=== PATIENT | male | born 1960 | race Asian ===

== ENCOUNTER 2018-02-07 16:22 | Emergency (ER) | payer MEDICAID ==
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
--- NOTE | 2018-02-07 17:39 | RADIOLOGY REPORT (SQ) ---
EXAM DESCRIPTION: FINGER LEFT COMPLETED DATE/TIME: 02/07/2018 5:26 pm REASON FOR STUDY: left middle finger infection COMPARISON: None. NUMBER OF VIEWS: Three views. TECHNIQUE: AP, lateral, and oblique images acquired of the left third finger. LIMITATIONS: None. FINDINGS: MINERALIZATION: Normal. BONES: No acute fracture or dislocation. No worrisome bone lesions. SOFT TISSUES: Diffuse swelling. No foreign body. OTHER: No other significant finding. IMPRESSION: Cellulitis. No evidence of osteomyelitis. COMMENT: SITE OF TRAUMA/COMPLAINT MARKED/STAMP COMPLETED: YES. TECHNICAL DOCUMENTATION: JOB ID: [id number] [email or web address]- All Rights Reserved Reading location - IP/workstation name: [email or web address]
--- NOTE | 2018-02-07 17:42 | RADIOLOGY REPORT (SQ) ---
EXAM DESCRIPTION: HIP RIGHT AP/LATERAL COMPLETED DATE/TIME: 02/07/2018 5:26 pm REASON FOR STUDY: right hip pain COMPARISON: None. NUMBER OF VIEWS: Two views. TECHNIQUE: AP pelvis and additional frog-leg view of the right hip. LIMITATIONS: None. FINDINGS: MINERALIZATION: Normal. RIGHT HIP: No fracture or dislocation. No worrisome bone lesions. LEFT HIP: Intact. 5 mm lytic lesion with sclerotic margin subcapital femoral neck of unlikely clinic al significance. Correlate clinically. PUBIS AND ISCHIUM: No fracture. PELVIS: No fracture. SACRUM: No fracture or dislocation. No worrisome bone lesions. LOWER LUMBAR SPINE: Spondylosis. SOFT TISSUES: No findings. OTHER: No other significant finding. IMPRESSION: No acute findings. TECHNICAL DOCUMENTATION: JOB ID: [id number] [employer]- All Rights Reserved Reading location - IP/workstation name: [email or web address]
[2018-02-07 17:50] LABS: ABSOLUTE BASOPHILS # (AUTO) 0.1 10^3/uL (0.0-0.2); ABSOLUTE EOSINOPHILS # (AUTO) 0.8 10^3/uL (0.0-0.6); ABSOLUTE LYMPHOCYTES (AUTO) 1.8 10^3/uL (0.5-4.7); ABSOLUTE MONOCYTES (AUTO) 0.9 10^3/uL (0.1-1.4); ABSOLUTE NEUT (AUTO) 2.9 10^3/uL (1.7-8.2); BASOPHILS % (AUTO) 1.1 % (0-2); EOSINOPHILS % (AUTO) 11.8 % (0-6); HEMOGLOBIN 13.4 g/dL (13.5-17.0); LYMPHOCYTES % (AUTO) 28.3 % (13-45); MEAN CORPUSCULAR HEMOGLOBIN 29.6 pg (27.0-33.4); MEAN CORPUSCULAR HGB CONC 34.4 g/dL (32.0-36.0); MEAN CORPUSCULAR VOLUME 86 fl (80-97); MONOCYTES % (AUTO) 13.4 % (3-13); PLATELET COUNT 175 10^3/uL (150-450); RED BLOOD COUNT 4.53 10^6/uL (4.35-5.55); RED CELL DISTRIBUTION WIDTH 13.7 % (11.5-14.0); SEGMENTED NEUTROPHILS % (AUTO) 45.4 % (42-78); TOTAL CELLS COUNTED % (AUTO) 100 %; WHITE BLOOD COUNT 6.4 10^3/uL (4.0-10.5)
[2018-02-07 18:04] LABS: ALANINE AMINOTRANSFERASE 79 U/L (21-72); ALBUMIN 3.6 g/dL (3.5-5.0); ALKALINE PHOSPHATASE 54 U/L (38-126); ANION GAP 9 (5-19); ASPARTATE AMINO TRANSFERASE 52 U/L (17-59); BILIRUBIN,DIRECT 0.6 mg/dL (0.0-0.4); BILIRUBIN,TOTAL 0.7 mg/dL (0.2-1.3); BLOOD UREA NITROGEN 20 mg/dL (7-20); CARBON DIOXIDE 27 mmol/L (22-30); CHLORIDE 103 mmol/L (98-107); GLUCOSE 99 mg/dL (75-110); SODIUM 138.5 mmol/L (137-145); TOTAL PROTEIN 7.2 g/dL (6.3-8.2)
[2018-02-07] MEDS ORDERED: KETOROLAC TROMETHAMINE INJ/PF 30 MG/1 ML SDV IV ONE (18:17)
[2018-02-07] MEDS ORDERED: CEFTRIAXONE INJ 1000 MG VIAL IV ONE (18:17)
[2018-02-07] MEDS ORDERED: DOXYCYCLINE HYCLATE 100 MG TABLET PO ONE (18:17)
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
[2018-02-07 18:57] VITALS: BP 178/89
== END 2018-02-07 18:55 | disposition home or self-care (01) ==
LOC: ER 16:22
DX: M25.551 Pain in right hip (principal); L08.9 Local infection of the skin and subcutaneous tissue, unspecified
CPT/HCPCS: 99284; 96372; 96374; 36415; 85025; 80053; 83605; 73140; 73502; J1885; J0696

== ENCOUNTER 2018-10-14 16:20 | Emergency (ER) | payer MEDICAID ==
[2018-10-14] MEDS ORDERED: DIPHENHYDRAMINE HCL 50 MG CAPSULE PO ONE (17:00)
--- NOTE | 2018-10-14 17:04 | ER Document Report ---
HPI - HPI Patient complains to provider of: bee sting Time Seen by Provider: 10/14/18 17:00 Pain Level: 4 Context: Patient is a 58-year-old male presents to the emergency department chief complaint of a bee sting. Patient states he feels as though he may have gotten stung by a bee last evening on the right side of his back. Patient states last evening he had some tightness in his throat and overall itching. States he did take Benadryl and overall felt better. Patient presents to the emergency room today for again generalized itching in the right back. Patient's denying any respiratory distress at this time, he is also denying any tightness in his chest, chest pain, shortness of breath, vomiting, diarrhea. Patient also requesting "all the shots I need because I am going out of the country." Past Medical History - General Information source: Patient - Social History Smoking Status: Unknown if Ever Smoked Family History: Reviewed & Not Pertinent Renal/ Medical History: Denies: Hx Peritoneal Dialysis - Immunizations Hx Diphtheria, Pertussis, Tetanus Vaccination: No Vertical Provider Document - CONSTITUTIONAL Agree With Documented VS: Yes Notes: GENERAL: Alert, interacts well. No acute distress. HEAD: Normocephalic, atraumatic. EYES: Pupils equal, round, and reactive to light. Extraocular movements intact. ENT: Oral mucosa moist, tongue midline. NECK: Full range of motion. Supple. Trachea midline. LUNGS: Clear to auscultation bilaterally, no wheezes, rales, or rhonchi. No respiratory distress. HEART: Regular rate and rhythm. No murmur ABDOMEN: Soft, non-tender. Non-distended. Bowel sounds present in all 4 quadrants. EXTREMITIES: Moves all 4 extremities spontaneously. No edema, normal radial and dorsalis pedis pulses bilaterally. No cyanosis. BACK: no cervical, thoracic, lumbar midline tenderness. No saddle anesthesia, normal distal neurovascular exam. NEUROLOGICAL: Alert and oriented x3. Normal speech. cranial nerves II through XII grossly intact PSYCH: Normal affect, normal mood. SKIN: Warm, dry, normal turgor. 6cm x 6cm Area of urticaria noted right back. No other skin lesions noted. - INFECTION CONTROL TRAVEL OUTSIDE OF THE [place] IN LAST 30 DAYS: No Course - Re-evaluation Re-evalutation: I have discussed with patient he needs to follow-up with his primary care provider for immunizations of that she may need when he is leaving the country. I discussed use of Benadryl for generalized urticaria rash. Patient shows no signs of anaphylaxis. He has no respiratory distress, lungs are clear and equal in all [place]. He is denying any vomiting or diarrhea episodes. I feel as though this is a localized area of urticaria. Patient stable for discharge. Discharge - Discharge Clinical Impression: Itching, Urticaria Insect bite Qualifiers: Encounter type: initial encounter Site of insect bite: lower back Qualified Code(s): S30.860A - Insect bite (nonvenomous) of lower back and pelvis, initial encounter Condition: Stable Disposition: HOME, SELF-CARE Instructions: Insect Sting ([facility]), Itching, Nonspecific ([facility]), Acute Urticaria ([facility]) Additional Instructions: As we discussed take benadryl as prescribed. Also return to the emergency room should you develop any shortness of breath of breath or tightness in your throat. Prescriptions: Diphenhydramine HCl [Benadryl] 50 mg PO Q6 #30 capsule
[2018-10-14 17:33] VITALS: BP 131/76
== END 2018-10-14 17:34 | disposition home or self-care (01) ==
LOC: ER 16:20
DX: L29.9 Pruritus, unspecified (principal); L50.9 Urticaria, unspecified; S30.860A Insect bite (nonvenomous) of lower back and pelvis, initial encounter; W57.XXXA Bitten or stung by nonvenomous insect and other nonvenomous arthropods, initial encounter
CPT/HCPCS: 99282; J3490

== ENCOUNTER → 2019-03-05 | Outpatient (CLI) | payer MEDICAID ==
--- NOTE | 2019-03-05 12:51 | RADIOLOGY REPORT (SQ) ---
EXAM DESCRIPTION: RIBS RIGHT W/PA CHEST COMPLETED DATE/TIME: 03/05/2019 10:16 am REASON FOR STUDY: R SIDED RIB PAIN R07.89 OTHER CHEST PAIN COMPARISON: None. TECHNIQUE: Frontal view of the chest and additional views of the right ribs acquired. NUMBER OF VIEWS: Three view. LIMITATIONS: None. FINDINGS: FRONTAL CXR: No pneumothorax. No pleural effusion. No atelectasis or infiltrates. RIBS: 4th and 5th healed right anterior ribs. Probably also the 6th. No acute rib fracture or bone lesion. OTHER: No other significant finding. IMPRESSION: No acute rib fracture or pneumothorax. Clear lungs. COMMENT: SITE OF TRAUMA/COMPLAINT MARKED/STAMP COMPLETED: NO. TECHNICAL DOCUMENTATION: JOB ID: [id number] [employer]- All Rights Reserved Reading location - IP/workstation name: [email or web address]
== END ==
LOC: RAD 10:00
PROVIDERS: ATTEND Nurse Practitioner Primary Care
DX: R07.89 Other chest pain (principal)